=== PATIENT | female | born 1965 | race Caucasian/White ===

== ENCOUNTER 2021-03-27 08:30 | Inpatient (IN) | payer OTHER ==
[~2021-03-27] VITALS: Ht 139.7 cm; Wt 70.3 kg
[2021-03-27] MEDS ORDERED: CALAN SR 120MG120 MG PO (10:12)
[2021-03-27] MEDS ORDERED: DIOVAN HCT 1601 EACH PO ×2 (10:12→10:55)
[2021-03-27] MEDS ORDERED: SYNTHROID88 MCG PO (10:13)
[2021-03-27] MEDS ORDERED: ZOCOR20 MG PO (10:13)
[2021-03-27] MEDS ORDERED: TOPROL XL25 M1 PO (10:13)
[2021-03-27] MEDS ORDERED: ALBUTEROL0.63 MG/3 IH (10:14)
[2021-03-27] MEDS ORDERED: ALBUTEROL (10:56)
[2021-03-30] MEDS ORDERED: ALBUTEROL SULFAT2 MG PO (08:53)
[2021-04-02] MEDS ORDERED: OXYC1TAB9 PO (08:43)
[2021-04-02] MEDS ORDERED: HYOSCYAMINE0.125 M1 SL (08:43)
== END 2021-04-02 09:21 | disposition home or self-care (01) | DRG 330 ==
LOC: ADM 08:30 → EDSTATUS 08:30 → O/R 03-30 05:53 → SURG 03-30 14:39 → SURH 03-30 08:30
PROVIDERS: ADMIT Surgery; ATTEND Surgery
PROC: 07BD4ZX Excision of Aortic Lymphatic, Percutaneous Endoscopic Approach, Diagnostic (ICD-10-PCS; 2021-03-30)
PROC: 3E0F7SF Introduction of Other Gas into Respiratory Tract, Via Natural or Artificial Opening (ICD-10-PCS; 2021-03-30)
PROC: 3E0F7GC Introduction of Other Therapeutic Substance into Respiratory Tract, Via Natural or Artificial Opening (ICD-10-PCS; 2021-03-30)
PROC: 0DTF4ZZ Resection of Right Large Intestine, Percutaneous Endoscopic Approach (ICD-10-PCS; principal; 2021-03-30 08:00)
DX: D12.8 Benign neoplasm of rectum (principal); K92.1 Melena; D12.9 Benign neoplasm of anus and anal canal; I10 Essential (primary) hypertension; E03.8 Other specified hypothyroidism; Z20.822 Contact with and (suspected) exposure to COVID-19